=== PATIENT | female | born 1995 | race Caucasian/White ===

== ENCOUNTER 2020-11-07 15:49 | Outpatient (CLI) | payer OTHER, SELFPAY ==
[2020-11-07 16:14] LABS: Hematocrit 38.8 % (37.0-47.0); Hemoglobin 13.6 g/dL (12.0-15.0)
[2020-11-07 16:46] LABS: Hemoglobin A1C 4.8 % (<5.7)
[2020-11-07 17:18] LABS: HIV 1/2 Ab P24 Ag Result Negative (Negative)
[2020-11-07 17:27] LABS: Rubella IgG Antibody 55.1 IU/ML
[2020-11-07 17:47] LABS: Hepatitis B Surface Anti Res Negative; Hepatitis C Virus Antibody Negative (Negative)
[2020-11-08 07:11] LABS: Rapid Plasma Reagin Non-Reactive (NonReactive)
== END 2020-11-07 15:50 | disposition home or self-care (01) ==
LOC: ANHLAB 15:53
PROVIDERS: Visit Provider Obstetrics & Gynecology
DX: Z36.89 Encounter for other specified antenatal screening (principal)
CPT/HCPCS: 36415; 83036; 85014; 85018; 86592; 86703; 86706; 86762; 86803; 86850; 86900; 86901; G0432

== ENCOUNTER 2021-05-14 15:01 | Inpatient (IN) | payer OTHER, SELFPAY ==
[2021-05-14] VITALS (17 sets, daily range): BP systolic 108–137; BP diastolic 52–99; PULSE 72–99; RESP 18; TEMP 36.9; BMI 31.6
--- NOTE | ~2021-05-14 | US_ITS ---
EXAMINATION: US OB BPP wo non-stress DATE: 05/14/2021 17:06 INDICATION: Nonreactive nonstress test during third trimester TECHNIQUE: Real-time pelvic ultrasound was performed. The interpreting radiologist was not present fo r the study. COMPARISON: None. FINDINGS: There is a single living fetus in vertex presentation. The placenta is anterior. heart rate is 136 beats per minute (bpm). Biophysical profile performed by the technologist: breathing (30 sec sustained breathing in 30 minutes): 2 out of 2 movement (3 gross body movements in 30 minutes): 2 out of 2 tone (one episode of ypybybv-aqlztxkqv-nhqzljb limb movement): 2 out of 2 Amniotic fluid pocket (2 cm): 2 out of 2 Total score: 8 out of 8 IMPRESSION: 1. Single living fetus in vertex presentation. 2. Biophysical profile 8 out of 8. Reviewed, dictated and finalized at location A.
[2021-05-14 16:00] LABS: Basophils Absolute Auto 0.1 K/mm3 (0.0-0.1); Basophils Percent Auto 0.5 % (0.2-1.2); Eosinophils Absolute Auto 0.3 K/mm3 (0-0.3); Eosinophils Percent Auto 1.8 % (0-4.4); Hematocrit 38.4 % (37.0-47.0); Hemoglobin 13.1 g/dL (12.0-15.0); Immature Granulocyte Absolute 0.21 K/mm3 (0.00-0.031); Immature Granulocyte Percent A 1.4 % (0-0.5); Mean Corpuscular HGB Conc 34.1 g/dl (32-36); Mean Corpuscular Volume 90.8 fl (80-100); Monocytes Absolute Auto 0.8 K/mm3 (0.1-0.6); Monocytes Percent Auto 5.7 % (2.6-8.5); Neutrophils Absolute Auto 11.6 K/mm3 (1.3-6.7); Neutrophils Percent Auto 79.6 % (45.5-73.1); Platelet Count Result 209 k/mm3 (150-375); Red Blood Count 4.23 M/mm3 (4.2-5.4); Red Cell Distribution Width 14.3 % (11.5-14.5); White Blood Count 14.6 K/mm3 (4.5-10.0)
[2021-05-14 16:02] LABS: Alanine Aminotransferase 17 U/L (4-35); Albumin Level 3.7 g/dL (3.5-5.1); Alkaline Phosphatase 154 U/L (38-126); Anion Gap 8 mmol/L (8-16); Aspartate Amino Transferase 25 U/L (14-36); Bilirubin,Total 0.3 mg/dL (0.2-1.3); Blood Urea Nitrogen 9 mg/dL (7-17); Calcium 9.8 mg/dL (8.4-10.2); Carbon Dioxide 23 mmol/L (22-30); Chloride 101 mmol/L (98-107); Estimated Glomerular Filt Rate > 60; Glucose 81 mg/dL (65-110); Potassium 4.1 mmol/L (3.4-5.0); Sodium 132 mmol/L (137-145); Uric Acid 4.1 mg/dL (2.5-7.5)
[2021-05-14 16:08] LABS: Add Urine Microscopic? YES; Appearance Urine Cloudy (Clear); Bilirubin Urine Negative (Negative); Blood Urine Negative (Negative); Color Urine Straw (Yellow); Glucose Urine UA Negative (Negative); Ketones Urine Negative (Negative); Leukocyte Esterase Ur 1+ LEU/UL (NEGATIVE); Nitrate Urine Negative (Negative); Protein Urine Negative (Negative); RBC Urine 0-2 /hpf (0-2); Specific Grav Ur 1.006 (1.001-1.035); Urobilinogen Urine Negative mg/dL (<2.0); WBC Urine 0-3 /hpf (0-3)
[2021-05-14 16:41] LABS: Creatinine Urine 21.3 mg/dL; Total Protein Urine Random 19 mg/dL; Ur Ttl Prot Creatinine Ratio 0.89 mg/mg (0-0.20)
--- NOTE | 2021-05-14 18:50 | PC.NURSE ---
1709- called, informed BPP was 05/19 and read labs. Orders received to keep pt for IOL, Leslie VICTOR will call in and give orders.
[2021-05-14 20:11] LABS: Amphetamine Screen Urine Negative (Negative); Barbiturate Screen Urine Negative (Negative); Benzodiazepines Screen Urine Negative (Negative); Cannabinoid Screen Urine Negative (Negative); Cocaine Screen Urine Negative (Negative); Methadone Screen Urine Negative (Negative); Opiate Screen Urine Negative (Negative); Phencyclidine Screen Urine Negative (Negative)
[2021-05-14 20:28] LABS: Glucose Point of Care 154 mg/dl (65-105)
[2021-05-14] MEDS: LACTATED RINGERS 1,000 ML 125 ML IV CONT (20:45)
[2021-05-14] MEDS: OXYTOCIN 30 UNITS/NS 500 ML 30 UNITS/500 ML BAG IV CONT (20:46)
[2021-05-15] VITALS (35 sets, daily range): BP systolic 110–186; BP diastolic 54–135; PULSE 65–181; RESP 16–18; TEMP 36.6–37.4; O2SAT 98
[2021-05-15 01:11] LABS: Glucose Point of Care 79 mg/dl (65-105)
[2021-05-15] MEDS: fentaNYL CITRATE INJ (*CRX) 100 MCG/2 ML VIAL 50 MCG IV PUSH ×2 (02:14→03:19)
[2021-05-15] MEDS: CALCIUM CARBONATE (TUMS) 500 MG (200 MG ELEMENTAL) PO (02:17)
[2021-05-15 03:31] LABS: Glucose Point of Care 101 mg/dl (65-105)
[2021-05-15] MEDS: fentaNYL CITRATE INJ (*CRX) 100 MCG/2 ML VIAL IV PUSH (04:59)
--- NOTE | 2021-05-15 05:18 | PM.OBPRVD ---
OB - Delivery Note Procedure Delivery date: 05/15/21 Procedure: vaginal delivery events: Gestational Diabetes and Induced HTN Intrapartal events: None Induction method: per pitocin protocol Delivery monitor: external FHT and external uterine Route of delivery: Laceration Description: Perineal - 2nd Degree Delivery repair: vicryl Specimen: Yes Quantitative Blood Loss (ml): 300 Anesthesia type: Local Disposition: floor Baby Date of : 05/15/21 Time of : 04:43 Weeks of gestation at delivery: 39 Infant gender: Female Weight (pounds): 6 Weight (ounces): 9 presentation: vertex position: Left Occiput Anterior Placenta delivery description: Spontaneous cord vessel description: 3 Vessels, Nuchal Cord, Tight and Clamped/Cut score one minute: 8 score five minutes: 9 Narrative: mother and baby skin to skin in stable condition
[2021-05-15] MEDS: OXYTOCIN 30 UNITS/NS 500 ML 30 UNITS/500 ML BAG 125 UNITS IV CONT (05:23)
[2021-05-15] MEDS: IBUPROFEN 600 MG TABLET PO ×2 (07:25→20:06)
--- NOTE | 2021-05-15 07:57 | OBPPTRN ---
Patient transferred to post room #286 via wheelchair. Support person present. Oriented to unit, room, information board, rooming in, admission packet and security measures. Patient verbalizes understanding.
--- NOTE | 2021-05-15 11:35 | PC.NURSE ---
Mother called out for assist with feeding, reporting was in Level II and this is 's first attempt to breast. Infant is able to freely thrust tongue past gum ridge and flange both lips. Skin is intact on both nipples, no redness and bruising noted. Reviewed feeding cues, frequencies, duration of feedings, feeding elimination flow sheet, and signs of adequate intake. Demonstrated stimulation techniques to wake for feeding. Assisted with infant to breast. Reviewed positioning/alignment in football, holding breast in ?C? hold and guided asymmetrical latch on. Discussed rational for each. Infant able to latch correctly. latched with a short burst of suckling then fell asleep. Several attempt made to wake . did not respond with waking. Feeding plan is to supplement infant this feeding due to timing and mother will begin pumping.
--- NOTE | 2021-05-15 12:00 | PC.NURSE ---
Breast pump provided due to ineffective feeding. Instructions given on breast pump care and usage, pumping schedule, nipple care, and collection and storage of breast milk. Encouraged [id number]-[id number], breast massage and manual expression to stimulate supply. Assessed patient for correct flange size, placement and draw. Patient verbalizes and demonstrates understanding of instructions.
[2021-05-15] MEDS: DOCUSATE SODIUM 100 MG CAPSULE PO (20:07)
[2021-05-15] MEDS: LANOLIN (LANSINOH) 7.5 GM CREAM 1 APPLIC TOPICAL (20:07)
--- NOTE | 2021-05-15 22:30 | PC.NURSE ---
Nipple shield provided to mother due to inability to latch. Instructions given on application and cleaning of shield. Discussed nipple shield precautions and possible complications. Patient able to return demonstration on proper application of shield. Discussed the need to initiate pumping if continues to nurse with the shield. Patient verbalizes understanding and is pumping after every attempt. Attempted to assist with latch using nipple everter and hand expression. Unsuccessful sustained latch. was only able to take a few shallow sucks on the shield with this feeding.
[2021-05-16] MEDS: ACETAMINOPHEN 325 MG TABLET 650 MG PO (00:23)
[2021-05-16 00:25] VITALS: BP 116/74; PULSE 82; RESP 16; TEMP 36.4; O2SAT 98
[2021-05-16] MEDS: IBUPROFEN 600 MG TABLET PO (03:57)
[2021-05-16 04:00] VITALS: BP 135/86; PULSE 86; RESP 16; TEMP 36.9; O2SAT 100
[2021-05-16 05:40] LABS: Hematocrit 31.4 % (37.0-47.0); Hemoglobin 10.2 g/dL (12.0-15.0)
[2021-05-16 08:00] VITALS: PULSE 98; RESP 18; O2SAT 100
[2021-05-16 08:35] VITALS: BP 118/68; PULSE 98; RESP 18; TEMP 36.6; O2SAT 100
--- NOTE | 2021-05-16 09:04 | PM.OBPNVD ---
OB - PN: Subj Subjective Date/time seen: 05/16/21 09:04 Patient comments: no complaints, pain well controlled, incisional pain, tolerating diet and flatus present OB - PN: Obj Data Labs CBC & Chem 7: 05/16/21 04:02 05/14/21 15:42 Labs: Laboratory Results - last 24 hr 05/16/21 04:02 Hgb 10.2 L Hct 31.4 L OB - PN A/P Plan day: 1 Plan: routine care Comments: No problems, routine care Time Spent With Patient Time: Total time spent is greater than 50% in coordination of care (as documented) at patient's floor/unit and/or counseling patient: Exam Const: General: comfortable, no acute distress and alert Resp: Effort & Inspection: normal respiratory effort Auscultation: no crackles, no rales and no rhonchi Cardio: Rate: regular rate Heart sounds: no click, no murmurs and no rubs GI: Inspection: non-distended GI Palp: No Tenderness to palpation present (GI) Auscultation: normal bowel sounds Other: Incision - CDI Extrem: General: normal to inspection, no pedal edema and no calf tenderness
[2021-05-16 09:28] LABS: Rapid Plasma Reagin Non-Reactive (NonReactive)
--- NOTE | 2021-05-16 10:00 | PC.NURSE ---
Consult with pt., mother reports infant continues with sleepiness at feedings. is slightly more awake showing feeding cues and latching with short bursts of suckling. Mother was given a nipple shield during the night and prefers not to use shield, she feels she has a better latch without. Discussed nipple shield precautions and possible complications. Instructions given on application and cleaning of shield. Patient able to return demonstration on proper application of shield. Discussed the need for regular pumping until milk supply is well established and is gaining weight if infant continues to nurse with the shield Patient verbalizes understanding. Mother is pumping after each feeding and has a double electric pump for home use. Mother will supplement after each feeding. Discussed to increase supplementation as infant desires, she may not want to feed for 4 hours with increased supplementation. Mother will continue to pump after feeding attempts increasing session to 20 minutes if every 4 hours. Reviewed signs when infant may be ready to decrease/discontinue supplement after . Advised not to discontinue supplement until seen by follow up RN, ICP or LC for pre/post feeding evaluation. Mother is able to independently latch infant with appropriate positioning/alignment. She denies any nipple discomfort, is feeding as required and waking to feed if needed. is currently meeting outcomes for weight, output, jaundice and feeding frequencies. Mother states she feels confident to continue current feeding plan at home. Reviewed transition to breast milk, signs of adequate intake, and engorgement/relief. Instructed to call ICP if intake/output less than required. Reviewed regular medications mother is taking. Information provided per Maureen. Reviewed community resources on the [facility] website and in the Mom/Baby guide. Information on outpatient services provided. Mother has no further questions at this time.
[2021-05-16] MEDS: MULTIVIT/MIN/PREN/FOL AC/IRON TABLET 1 TAB PO (10:20)
[2021-05-16] MEDS: DOCUSATE SODIUM 100 MG CAPSULE PO (10:20)
--- NOTE | 2021-05-16 11:38 | PC.NURSE ---
Patient viewed the discharge video Mother & Baby Care, The First Two Weeks . Patient was given the opportunity and encouraged to ask questions. Patient verbalized understanding of information shared and has been given the mother/baby guide for home reference.
--- NOTE | 2021-05-16 13:39 | PCCCNOTE ---
Care Coordination Consult: Met with pt. and FOAlysha Solorio today. Pt. lives at home with Osmin and this is their first child. They have all necessary supplies at home including a crib, car seat, clothing, diapers, and bottles. They are not interested in using [facility] services as they report they will not qualify for services. resources provided. Baby and pt. tested negative for marijuana. Spoke with pt. who reports a past use of marijuana and denies any current substance use. Denies any further case management needs.
--- NOTE | 2021-06-09 18:56 | PM.OBDSVD ---
DS: Admitting Diagnosis Admitting Diagnosis labor DS: Discharge Diagnosis Discharge Diagnosis (1) Term delivered: Code(s): O80 - Encounter for full-term uncomplicated delivery Status: Acute OB - DS: Summary OB Procedures : None OB Procedures Intrapartum: Spontaneous Vag Delivery OB Procedures: : None Time Spent with Patient Time attestation: Total time spent providing and/or coordinating discharge services: DS: Data Data Completed and Pending Completed studies during hospitalization: Pending at discharge 05/15/21 05:26 Surgical [PTH] Routine Discharge Plan Discharge Attending physician on discharge: Betty Castillo Consulting providers: Annabella Arguello ; Tyson Riojas Discharging Clinician: Betty Castillo Anticipated Discharge Date/Time: 05/16/21 11:35 Patient Disposition: Home, Self-Care Activity: may shower, as tolerated and pelvic rest Diet: regular Discharge Instructions: Education: Mom and Baby Guide Given to: Mother Follow-Up: Call your delivering provider's office for an appointment to be seen in: 4 Weeks Mom and baby should come to the [facility] for the follow-up appointment. Appointment Date/Time: Tuesday, May 18, 2021 at 11:00 a.m. What to expect at your follow-up visit: Blood Pressure Check Physical Assessment Call [phone] if you are unable to keep your appointment time. BREAST CARE: * Wear a snug supportive bra. * For engorgement discomfort: Breast Feeding: * Apply warm moist washcloths * Express milk as needed to relieve engorgement * Wear loose clothing Bottle Feeding: * May apply ice packs * For sore nipples: * Identify correct latch-on * Apply warm moist washcloths before and after nursing * Air dry nipples after nursing * May apply Lansinoh cream to nipples EPISIOTOMY/PERINEAL CARE: * Until bleeding stops, use your kana bottle after urinating * Change your pad frequently throughout the day * You may take sitz baths several times a day (fill your bathtub with warm water and soak for 20 minutes.) Do NOT bathe in the water * No tub baths until seen by your physician - You may shower ACTIVITY: * Rest as much as possible. * Do not exercise or lift anything heavier than your baby (such as laundry or other children.) * Avoid stairs or driving as much as possible. * Do not put anything into the vagina. No douching, tampons, or sexual activity until seen by physician. NOTIFY PHYSICIAN IF YOU HAVE ANY QUESTIONS OR IF ANY OF THE FOLLOWING SYMPTOMS OCCUR: * If your perineum becomes red, swollen, or more painful than what you have experienced in the hospital. * If your vaginal bleeding becomes foul smelling. * If your vaginal bleeding becomes more heavy than a period or if your bleeding changes from pink to bright red. However, you may pass an occasional walnut-sized clot once or twice for the first week . * If you experience a sharp, shooting pain in you calves. * If you discover a hard, reddened area on your breast or if you experience flu-like symptoms. DIET: * Eat regular, well-balanced meals. * Drink plenty of fluids daily. If , drink to thirst. Stand Alone Forms: General Discharge Information Follow-up/Referrals: Betty Castillo MD [Physician] - 4 Weeks Discharge Medications: Continued prenat.vits,megan,[id number] Tablet 1 tablet PO DAILY RF: 0 ferrous sulfate 140 mg (45 mg iron) Tablet Extended Release 140 mg PO DAILY RF: 0 Date of admission: 05/14/21 15:01 Primary Care Provider: PHYSICIAN,AFFILIATE MARKETING SPECIALIST Admitting Provider: Betty Castillo Attending physician on admission: Betty Castillo Condition: Stable
== END 2021-05-16 14:47 | disposition home or self-care (01) | DRG 807 ==
LOC: ANHOBOP 15:08 → ANHOBPP 15:08 → ANHOBOP 17:20 → ANHOBPP 17:20 → ANHLDR 17:49 → ANHOB2 05-15 08:03
PROVIDERS: Advanced Practice Midwife; Admitting Provider Obstetrics & Gynecology; Visit Provider Obstetrics & Gynecology
DX: O24.429 Gestational diabetes mellitus in childbirth, unspecified control (principal); Z37.0 Single live birth; O13.4 Gestational [pregnancy-induced] hypertension without significant proteinuria, complicating childbirth; O70.1 Second degree perineal laceration during delivery; O69.1XX0 Labor and delivery complicated by cord around neck, with compression, not applicable or unspecified; O62.3 Precipitate labor; Z3A.39 39 weeks gestation of pregnancy
CPT/HCPCS: 36415; 59025; 76819; 80053; 80307; 81001; 82570; 82948; 84112; 84156; 84550; 85014; 85018; 85025; 86592; 86850; 86900; 86901; 87086; 88307; A9270; J2590; J3010; J7120

== ENCOUNTER 2023-05-30 11:24 | Inpatient (IN) | payer OTHER, SELFPAY ==
[2023-05-30] VITALS (17 sets, daily range): BP systolic 110–140; BP diastolic 59–95; PULSE 68–96; RESP 16–18; TEMP 36.8–37.1; O2SAT 100; BMI 30.3
[2023-05-30 12:04] LABS: Basophils Absolute Auto 0.1 K/mm3 (0.0-0.1); Basophils Percent Auto 0.4 % (0.2-1.2); Eosinophils Absolute Auto 0.2 K/mm3 (0-0.3); Eosinophils Percent Auto 1.1 % (0-4.4); Hematocrit 39.1 % (37.0-47.0); Immature Granulocyte Absolute 0.12 K/mm3 (0.00-0.031); Immature Granulocyte Percent A 0.7 % (0-0.5); Lymphocytes Absolute Auto 1.18 K/mm3 (0.9-3.2); Lymphocytes Percent Auto 6.5 % (18.3-44.2); Mean Corpuscular HGB Conc 33.2 g/dl (32-36); Mean Corpuscular Hemoglobin 30.2 pg (26-34); Mean Corpuscular Volume 90.9 fl (80-100); Mean Platelet Volume 10.7 fl (7.4-10.4); Monocytes Absolute Auto 0.9 K/mm3 (0.1-0.6); Neutrophils Absolute Auto 15.7 K/mm3 (1.3-6.7); Neutrophils Percent Auto 86.3 % (45.5-73.1); Platelet Count Result 215 k/mm3 (150-375); Red Cell Distribution Width 13.6 % (11.5-14.5); White Blood Count 18.2 K/mm3 (4.5-10.0)
--- NOTE | 2023-05-30 12:26 | LDADM ---
This patient, Artem Ray, was admitted to Labor/Delivery/Recovery 106 on 05/30/23 at 11:24. Plans for labor, pain management and were discussed with patient. Patient/family oriented to hospital policies and general routines including ID bracelet, bed and alarms, visiting hours, pain management, procedures, bathroom and other care routines, personal items, smoking policy, room service/diet and guest tray routines, security routines, and visiting hours. Patient/Family are encouraged to report perceived risks to care and to ask questions if they do not understand what they are told or what they should do. See OBIX for further documentation.
[2023-05-30] MEDS: fentaNYL CITRATE INJ (*CRX) 100 MCG/2 ML VIAL 50 MCG IV PUSH (12:37)
[2023-05-30] MEDS: LACTATED RINGERS 1,000 ML 125 ML IV CONT (14:30)
[2023-05-30] MEDS: LIDOCAINE HCL 1% LOCAL INJ 20 ML VIAL (14:35)
[2023-05-30] MEDS: OXYTOCIN 30 UNITS/NS 500 ML 30 UNITS/500 ML BAG 999 UNITS IV CONT (14:35)
--- NOTE | 2023-05-30 14:47 | WPDOBADMIT ---
Obstetrics - Admit Note Admission Note: record reviewed. No pertinent additions to the history and/or any subsequent changes in the physical findings that are not consistent with the expected course of the were found. admit in labor, SROM clear fluid Additions to the history and/or subsequent changes in the physical findings follow. None.
--- NOTE | 2023-05-30 14:47 | PM.OBPRVD ---
OB - Delivery Note Procedure Delivery date: 05/30/23 Procedure: Induction method: None Delivery augmentation: Rupture of Membranes Delivery monitor: External FHT and Internal FHT Route of delivery: Laceration Description: Perineal - 1st Degree Delivery repair: vicryl Specimen: No Quantitative Blood Loss (ml): 180 Anesthesia type: Local Disposition: Floor [place] Baby Date of : 05/30/23 Time of : 14:28 Weeks of gestation at delivery: 39 gender: Male Weight (pounds): 7 Weight (ounces): 4 presentation: vertex position: Left Occiput Anterior Placenta delivery description: Spontaneous Cord Vessel Description: 3 Vessels, Nuchal Cord (x1), Tight, Reduced, Around Body (x1) and Around Extremity (x1) score one minute: 6 score five minutes: 8 Narrative: head delivered KERI, tight nuchal cord reduced, anterior shoulder delivered under pubic bone, tight nuchal cord around extremity and body, fetus delivered, to warmer for evaluation, at end of repair baby and mother skin to skin in stable condition
[2023-05-30] MEDS: OXYTOCIN 30 UNITS/NS 500 ML 30 UNITS/500 ML BAG 125 UNITS IV CONT (15:45)
[2023-05-30] MEDS: IBUPROFEN 600 MG TABLET PO (16:09)
--- NOTE | 2023-05-30 17:00 | OBPPTRN ---
Patient transferred to post room #282 via wheelchair. Support person present. Oriented to unit, room, information board, rooming in, admission packet and security measures. Patient verbalizes understanding.
[2023-05-30] MEDS: ACETAMINOPHEN 325 MG TABLET 650 MG PO (18:30)
[2023-05-30] MEDS: BENZOCAINE 20% AER SPR (*SP) 56 GM CAN 1 SPRAY TOPICAL (18:32)
[2023-05-30] MEDS: WITCH HAZEL 40 PADS 1 PAD TOPICAL (18:32)
[2023-05-31] MEDS: IBUPROFEN 600 MG TABLET PO ×3 (00:07→15:34)
[2023-05-31 00:10] VITALS: BP 128/74; PULSE 84; RESP 16; TEMP 36.6; O2SAT 100
[2023-05-31 04:05] VITALS: BP 109/69; PULSE 89; RESP 16; TEMP 37.2; O2SAT 99
[2023-05-31 04:25] LABS: Hematocrit 32.3 % (37.0-47.0); Hemoglobin 10.9 g/dL (12.0-15.0)
[2023-05-31] MEDS: MULTIVIT/MIN/PREN/FOL AC/IRON TABLET 1 TAB PO (07:02)
[2023-05-31] MEDS: BENZOCAINE 20% AER SPR (*SP) 56 GM CAN 1 SPRAY TOPICAL (07:02)
[2023-05-31] MEDS: DOCUSATE SODIUM 100 MG CAPSULE PO (07:02)
[2023-05-31] MEDS: WITCH HAZEL 40 PADS 1 PAD TOPICAL (07:02)
[2023-05-31 07:22] VITALS: BP 121/78; PULSE 100; RESP 17; TEMP 37.2
--- NOTE | 2023-05-31 08:40 | P.PNOB_ITS ---
OB - PN: Subj Subjective Date/time seen: 05/31/23 08:40 Patient comments: no complaints, pain well controlled, incisional pain, tolerating diet and flatus present OB - PN: Obj Data Labs 05/31/23 03:52 Labs: Laboratory Results - last 24 hr 05/30/23 05/31/23 11:54 03:52 WBC 18.2 H RBC 4.30 Hgb 13.0 10.9 L Hct 39.1 32.3 L MCV 90.9 MCH 30.2 MCHC 33.2 RDW 13.6 Plt Count 215 MPV 10.7 H Immature Gran % (Auto) 0.7 H Neut % (Auto) 86.3 H Lymph % (Auto) 6.5 L [place] % (Auto) 5.0 Eos % (Auto) 1.1 Baso % (Auto) 0.4 Lymph # (Auto) 1.18 [place] # (Auto) 0.9 H Eos # (Auto) 0.2 Baso # (Auto) 0.1 Abs Immat Gran (auto) 0.12 H Absolute Neuts (auto) 15.7 H Absolute Nucleated RBC 0.0 Nucleated RBC % 0.0 Blood Type O Positive Antibody Screen Negative OB - PN A/P Plan day: 1 Plan: routine care Comments: No problems, routine care Time Spent With Patient Time: Total time spent is greater than 50% in coordination of care (as documented) at patient's floor/unit and/or counseling patient: Exam Const: General: comfortable, no acute distress and alert Resp: Effort & Inspection: normal respiratory effort Auscultation: no crackles, no rales and no rhonchi Cardio: Rate: regular rate Heart sounds: no click, no murmurs and no rubs GI: Inspection: non-distended GI Palp: No Tenderness to palpation present (GI) Auscultation: normal bowel sounds Other: Incision - CDI Extrem: General: normal to inspection, no pedal edema and no calf tenderness
[2023-05-31 14:00] VITALS: PULSE 100; RESP 17; O2SAT 99
[2023-05-31 19:30] VITALS: BP 123/80; PULSE 67; RESP 16; TEMP 36.7
[2023-06-01] MEDS: IBUPROFEN 600 MG TABLET PO (07:08)
[2023-06-01] MEDS: DOCUSATE SODIUM 100 MG CAPSULE PO (07:08)
[2023-06-01] MEDS: MULTIVIT/MIN/PREN/FOL AC/IRON TABLET 1 TAB PO (07:08)
[2023-06-01 07:30] VITALS: BP 113/77; PULSE 68; RESP 16; TEMP 37.2; O2SAT 99
--- NOTE | 2023-06-01 08:44 | PM.OBPNVD ---
OB - PN: Subj Subjective Date/time seen: 06/01/23 08:44 Patient comments: no complaints, pain well controlled and tolerating diet OB - PN: Obj Data Labs 05/31/23 03:52 OB - PN A/P Plan day: 2 Plan: routine care and discharge home Time Spent With Patient Time: Total time spent is greater than 50% in coordination of care (as documented) at patient's floor/unit and/or counseling patient: Exam Const: General: comfortable and no acute distress Resp: Effort & Inspection: normal respiratory effort Auscultation: no rales, no rhonchi and no wheezes Cardio: Rate: regular rate Heart sounds: no click, no murmurs and no rubs GI: GI Palp: Yes Soft to palpation and No Tenderness to palpation present (GI) Auscultation: normal bowel sounds Extrem: General: normal to inspection, no pedal edema and no calf tenderness
--- NOTE | 2023-06-01 08:44 | PM.OBDSVD ---
DS: Admitting Diagnosis Discharge Date 06/01/23 Admitting Diagnosis term DS: Discharge Diagnosis Discharge Diagnosis (1) Term delivered: Code(s): O80 - Encounter for full-term uncomplicated delivery Status: Acute OB - DS: Summary OB Procedures : None OB Procedures Intrapartum: Spontaneous Vag Delivery OB Procedures: : None Time Spent with Patient Time attestation: Total time spent providing and/or coordinating discharge services: Discharge Plan Discharge Discharging Clinician: Betty Castillo Patient Disposition: Home, Self-Care Activity: pelvic rest Diet: regular Patient Instructions: Antibiotic Form Stand Alone Forms: General Discharge Information Follow-up/Referrals: Betty Castillo MD [Physician] - Discharge Medications: Continued prenat.vits,megan,[id number] Tablet 1 tablet PO DAILY aspirin [Baby Aspirin] 81 mg Tablet,Chewable 81 mg PO DAILY Date of admission: 05/30/23 11:24 Primary Care Provider: PHYSICIAN,REHABILITATION THERAPY AIDE Admitting Provider: Betty Castillo Attending physician on admission: Betty Castillo Condition: Stable
--- NOTE | 2023-06-01 10:46 | PC.NURSE ---
[id number] Introductions were made, then consulted with patient to assess needs related to . Mother led the conversation with her?plans to feed?her infant, the?experience so far and her 6 months history attempt with her first . Mother works well with her infant with encouragement and education. Encouraged understanding of the benefits of skin to skin (demonstrating unwrapping and placing upright on her chest), stimulating with massage touch, stimulating with a warm, wet washcloth, burping, changing positions to encourage wakefulness, how to watch for early feeding cues, responsive feeding, feeding on demand (aiming for 8-12 times in 24 hours, about every 2-3 hours), milk production, building/maintaining a milk supply, hand expression, duration of feeding, signs of adequate intake/output and how to record on the feeding sheet. Reviewed positioning and ear, shoulder, hip alignment, supporting the breast to facilitate a deep latch, asymmetrical latch (off-center), leading with the chin with a big, open, wide gape and body close to mother. latched optimally to the right breast in football position. Education given to mother of how to visualize suck/swallow ratios mother was able to visualize one swallow before stopped nursing. Infant was able to maintain latch without discomfort to mother for a few minutes, then held the nipple in his mouth. Nipple care reviewed with optimal latch and good positioning. Resources used to facilitate learning were used with the tool, mom and baby guide. Mother voiced understanding of skin to skin, stimulating with massage touch, responsive feedings, hand expressed colostrum, talking to infant to encourage if it has been 2 -2.5 hours since the start of the last , pumping if doesn't effectively breastfeed, to call if does not latch, or if there is discomfort with . Parents are supplementing with bottle formula until her milk comes to full volume. Reviewed protecting her milk supply. Resources provided for inpatient/outpatient with feeding sheet and the mom/baby guide. Parents voiced understanding of information, demonstrated learning and will call if there is a request for assistance. Reported to the Primary RN.
[2023-06-01 12:36] LABS: Rapid Plasma Reagin Non-Reactive (NonReactive)
[2023-06-02 13:47] VITALS: BP 121/83; PULSE 88; RESP 18; TEMP 37.3; O2SAT 100
== END 2023-06-01 12:12 | disposition home or self-care (01) | DRG 807 ==
LOC: ANHLDR 11:40 → ANHOB2 17:02
PROVIDERS: Advanced Practice Midwife; Admitting Provider Obstetrics & Gynecology; Visit Provider Obstetrics & Gynecology
DX: O69.1XX0 Labor and delivery complicated by cord around neck, with compression, not applicable or unspecified (principal); Z37.0 Single live birth; Z3A.39 39 weeks gestation of pregnancy; O70.0 First degree perineal laceration during delivery; O69.82X0 Labor and delivery complicated by other cord entanglement, without compression, not applicable or unspecified
CPT/HCPCS: 36415; 85014; 85018; 85025; 86592; 86850; 86900; 86901; A9270; J2590; J3010; J7120

== ENCOUNTER 2024-06-20 00:16 | Day surgery (SDC) | payer OTHER, SELFPAY ==
--- NOTE | 2024-06-14 09:53 | SUR.PREOP ---
Report to the Outpatient Waiting Room, entrance under the green pavilion located off [facility], at time 0900 on date 06/20/24. Planned Procedure Time: 1100.? Time changes happen often and if your time is changed the preop area will call you the afternoon before. - You and your visitor will be asked to self-screen and do not enter if you have any COVID symptoms. Please call surgeon if you need to reschedule. - A mask is optional within the hospital at this time. Patients may have clear liquids (water, carbonated beverages, clear teas, apple juice) until 3 hours prior to surgery with a maximum of 20 ounces. - No food from midnight until time of surgery and no smoking - Infants may have breast milk until 4 hours before surgery, infant formula 6 hours prior to surgery. - Children will be allowed to drink immediately following surgery.? If applicable, please bring a bottle or sippy cup to assist with drinking. Juice, water, soda, and popsicles are readily available.? For infants on formula, please bring formula the day of surgery.? Pacifiers are allowed. Take only the following medications with a SIP of water on the morning of surgery: N/A DO NOT STOP ANY OF YOUR OTHER PRESCRIPTION MEDICATIONS PRIOR TO SURGERY EXCEPT THE FOLLOWING Medications to discontinue per physician N/A Date to take last dose Please no make-up, nail nepali, hairspray, perfume, deodorant, or body powder the day of surgery.? No jewelry (including any body piercings) or valuables the day of surgery, leave them at home.? Please take a shower or bath the night before, or the morning of, surgery with an antibacterial soap.? Wear comfortable, loose fitting clothing.? Children are encouraged to wear pajamas. - Jewelry must be removed prior to entering the operating room.? Rings and piercings that are not removed may be cut off. - The hospital will not accept responsibility for valuables.? - Please leave all valuables, including medications, at home the day of surgery. If you are going home after surgery, a licensed grain combine driver must drive you home.? - NO public transportation without another adult if you receive anesthesia. - We recommend that an adult stay with you for 24 hours following discharge. - We also recommend that you do not drive, make important decision, drink alcoholic beverages, or take any drugs that were not prescribed by your health care provider for at least 24 hours after your discharge time. For Pediatric surgeries, we recommend two adults accompany the child home. Follow any additional instructions given to you from your surgeon. Telephone instructions given to JEWEL MOYA and asked if any additional questions and then verbalized understanding. Patient advised to call surgeon office or pre surgery nurse liaison [phone] if any additional questions.
[2024-06-14 10:04] VITALS: BMI 27.3
[2024-06-20] VITALS (9 sets, daily range): BP systolic 110–131; BP diastolic 70–95; PULSE 60–87; RESP 12–16; TEMP 36.1–36.6; O2SAT 97–100
--- NOTE | 2024-06-20 07:35 | PM.IMHP ---
H&P: HPI History of Present Illness Date/Time: 06/20/24 07:35 Chief Complaint: desires sterilization Narrative: Patient is a 29 year old female who presents for bilateral salpingectomy. She desires permanent sterilization and has completed childbearing. She does not desire future pregnancies. Risks and benefits including permanence of procedure have been discussed with the patient who voices understanding. She denies abdominal pain, nausea, vomiting, or dysuria. Review of Systems Review of Systems: All systems reviewed & are unremarkable except as noted in HPI and below PMFSH Family History Family History Grandparent Diabetes mellitus Social History Social History Years smoked: 5 Smoking status: Former smoker Tobacco type: cigarettes Second hand tobacco smoke exposure: No Smoking end date: 10/12/20 Substance use: current Substance use type: marijuana Other substance usage details: MARIJUANA 3-4 TIMES PER WEEK Last use: AT BEGINNING OF Lack of Transportation: No Lack of Food: Never True Current Housing: I Have Housing Concerned About Future Housing: No Difficulty Paying Gas/Electric Bills: No Difficulty Paying for Meds: No Currently Unemployed: No Education: High School Diploma/GED Difficulty w/ Childcare or Family Care: No Living arrangements: with family Gender identity (if verbalized by the patient): Female Spiritual care concerns: No Meds Home Medications and Allergies Home Medications Medication Instructions Recorded Confirmed Type No Home Medications 06/14/24 06/14/24 History Allergies Allergy/AdvReac Type Severity Reaction Status Date / Time amoxicillin Allergy Unknown Hives Verified 06/14/24 09:45 Exam Const: General: comfortable and no acute distress HENMT: Mouth: Yes moist mucous membranes Resp: Effort & Inspection: normal respiratory effort Cardio: Rate: regular rate Extrem: General: normal to inspection Psych: Mental Status: mental status grossly normal Assessment and Plan Assessment and plan (1) Admission for sterilization: Code(s): Z30.2 - Encounter for sterilization Status: Acute Assessment and Plan: - patient has completed childbearing and desires permanent sterilization - risks and benefits to procedure discussed with patient who voices understanding - will proceed with bilateral salpingectomy
--- NOTE | 2024-06-20 08:58 | WPDHPUPDATE1 ---
History and Physical Update Update Date/Time: 06/20/24 08:58 History and Physical has been reviewed, including an updated exam of the patient. There are NO changes in the patient's condition. Risks, benefits, and alternatives have been discussed and questions answered. Patient agrees to proceed with procedure.
[2024-06-20] MEDS: ACETAMINOPHEN 500 MG TABLET 1000 MG PO (08:59)
[2024-06-20] MEDS: KETOROLAC 15 MG/ML VIAL (*BKC) IV PUSH (08:59)
[2024-06-20] MEDS: LACTATED RINGERS 1,000 ML 30 ML IV CONT (09:00)
--- NOTE | 2024-06-20 09:39 | W.PM.PROC2 ---
Procedure Note - Detailed Date of Procedure 06/20/24 Pre-op Diagnosis Request Sterilization Post-op Diagnosis Same Procedure Performed laparoscopic bilateral salpingectomy Surgeon Mesfin Adkins MD Anesthesia General Indications desires permanent sterilization Description of Procedure With IV fluids infusing, the patient was taken to the operating room. The patient was placed in supine position. General anesthesia with endotracheal intubation was given. A time-out took place. The patient was placed in dorsal lithotomy position using Denny stirrups and she was prepped and draped in the usual sterile fashion. The bladder was drained using a red rubber catheter. A sterile speculum was placed vaginally, the anterior lip of the cervix was grasped with a single-tooth tenaculum and the acorn uterine manipulator was placed without difficulty. The speculum was removed. The surgeon's gloves were changed and attention was turned to the abdomen. A 5 mm incision was made in the umbilicus. Under direct visualization with the scope, the umbilical port was inserted without difficulty. Another two trocars were placed under direct visualization in the left upper and left lower quadrants. The patient was placed in Trendelenburg and inspection of the pelvis noted the above findings. Appropriate pictures were taken. Using the LigaSure devise, a left salpingectomy was performed in the usual fashion. Care was taken to avoid the IP ligament. The salpingectomy went smoothly. The same procedure was repeated on the right side. The instruments were all removed from the abdomen and the CO2 gas was allowed to escape. The three skin incisions were reapproximated with 4-0 Polysorb in a subcuticular manner, followed by skin glue. The acorn manipulator and single tooth tenaculum was removed from the uterus and cervix, respectively. The tenaculum sites were hemostatic. All instruments were removed from the vagina. At the end of the case, instrument, sponge and needle counts were correct x 2. The patient was awakened from general anesthesia and was taken to PACU in stable condition. Estimated Blood Loss 10 Pathology Yes Complications No immediate complications Condition Stable Disposition Same day
[2024-06-20 09:55] LABS: BEDSIDEPREGUCG Negative (Negative)
--- NOTE | 2024-06-20 10:02 | P.PNAN_ITS ---
Anes - Initial Pre Proc Eval Procedure: Operation Date: 06/20/24 10:30 Proposed Procedures p Laparoscopic Bilateral Salpingectomy - Mesfin Adkins MD Date/Time: 06/20/24 10:02 Surgeon: Mesfin Adkins MD Pre Op Diagnosis: Request Sterilization Patient Data Age: 29 Gender: F Height: 1.5 m Weight: 60.4 kg Last Vital Signs Temp 36.6 C 06/20/24 09:00 Pulse 87 06/20/24 09:00 Resp 16 06/20/24 09:00 BP 124/83 06/20/24 09:00 Pulse Ox 100 06/20/24 09:00 O2 Del Method Room Air 06/20/24 09:00 Allergies Allergy/AdvReac Type Severity Reaction Status Date / Time amoxicillin Allergy Unknown Hives Verified 06/20/24 08:58 Home Medications Medication Instructions Recorded Confirmed Type No Home Medications 06/14/24 06/14/24 History Laboratory Tests 06/20/24 09:00 POC Urine HCG, Qual Negative (Negative) Patient hx anesthesia problems: none Family hx anesthesia problems: none Results Review: All pre-operative results and documents have been reviewed as part of the pre- operative evaluation. [facility] Family History Family History Grandparent Diabetes mellitus Social History Social History Years smoked: 5 Smoking status: Former smoker Tobacco type: cigarettes Second hand tobacco smoke exposure: No Smoking end date: 10/12/20 Substance use: current Substance use type: marijuana Other substance usage details: MARIJUANA 3-4 TIMES PER WEEK Last use: AT BEGINNING OF Lack of Transportation: No Lack of Food: Never True Current Housing: I Have Housing Concerned About Future Housing: No Difficulty Paying Gas/Electric Bills: No Difficulty Paying for Meds: No Currently Unemployed: No Education: High School Diploma/GED Difficulty w/ Childcare or Family Care: No Living arrangements: with family Gender identity (if verbalized by the patient): Female Spiritual care concerns: No Anes - Eval Final PreProcedure Day of Procedure 06/20/24 10:02 Patient weight: overweight Heart: regular rate and rhythm Lungs: clear to auscultation Airway: Mallampati scale class II Neurological: alert and oriented Last oral intake: >/= 8 hours ASA classification: II Emergent: no Anesthetic plan: proceed Anesthesia type and monitoring: general ETT and standard monitoring Results Review: All pre-operative results and documents have been reviewed as part of the pre- operative evaluation. Informed Consent: The patient's anesthetic plan and its attendant risks and benefits were discussed with the patient/family/POA. Questions were solicited and answers provided to the satisfaction of the patient/family/POA.
--- NOTE | 2024-06-20 11:35 | SUR.PHASEI ---
Simple mask removed at 1130.
[2024-06-20] MEDS: oxyCODONE HCL (*CRX) 5 MG TAB IR PO (12:25)
== END 2024-06-20 13:13 | disposition home or self-care (01) ==
PROVIDERS: PCP Family Medicine; Visit Provider Obstetrics & Gynecology
PROC: (CPT 49320; principal; 2024-06-20 10:30)
DX: Z30.2 Encounter for sterilization (principal); F12.90 Cannabis use, unspecified, uncomplicated; Z87.891 Personal history of nicotine dependence
CPT/HCPCS: 58661; 88302; A9270; J1100; J1885; J2250; J2405; J2704; J3010; J7030; J7120